=== PATIENT | female | born 2000 | race African-American/Black ===

== ENCOUNTER 2020-09-24 13:45 | Emergency (ER) | payer BC ==
[~2020-09-24] VITALS: Ht 149.9 cm; Wt 63.5 kg
--- NOTE | 2020-09-24 13:55 | NUR ---
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 Respiration regular and unlabored. In room air and denies SOB. Denies pain. The patient denies SI/HI. Attached to the monitor. Warm blanket provided for comfort. Will continue to monitor the patient.
--- NOTE | 2020-09-24 13:58 | NUR ---
CALLED [employer]. JULIAN PATTON. REPORT NUMBER IS [id number]
--- NOTE | 2020-09-24 14:10 | NUR ---
AARON STATED "75 MG WILL HAVE MILD EFFECTS. HAVE A TOXICOLOGY REPORT FOR ALCOHOL AND OTHER SUBSTANCES. MONITOR FOR 4-6 HOURS AFTER INGESTION. MAKE SURE BREATHING ISNT COMPROMISED AND IS AROUSABLE. PT MAY FEEL SLEEPY, WEAK AND HAVE AN UNSTEADY GAIT. "
[2020-09-24 14:20] LABS: BASOPHILS # (AUTO) 0.1 /CMM (0.0-0.2); BASOPHILS % (AUTO) 0.8 % (0.0-2.0); EOSINOPHILS % (AUTO) 3.3 % (0.0-6.0); HEMATOCRIT 38 % (33-45); HEMOGLOBIN 12.4 g/dL (11.5-14.8); LYMPHOCYTES # (AUTO) 2.4 /CMM (0.8-4.8); LYMPHOCYTES % (AUTO) 26.1 % (20.0-44.0); MEAN CORPUSCULAR HGB CONC 33 g/dl (31.0-36.0); MEAN CORPUSCULAR VOLUME 82 fL (82-100); MONOCYTES # (AUTO) 0.6 /CMM (0.1-1.30); MONOCYTES % (AUTO) 6.8 % (2.0-12.0); NEUTROPHILS # (AUTO) 5.8 /CMM (1.8-8.9); PLATELET COUNT (AUTO) 378 /CMM (150-450); RED BLOOD CELL COUNT(AUTO) 4.64 MIL/uL (4.0-5.2); WHITE BLOOD COUNT (AUTO) 9.2 K/uL (4.3-11.0)
[2020-09-24 14:34] LABS: ALANINE AMINOTRANSFERASE 17 U/L (12-78); ALBUMIN 3.9 g/dL (3.4-5.0); ALKALINE PHOSPHATASE 77 U/L (46-116); ASPARTATE AMINOTRANSFERASE 15 U/L (15-37); BILIRUBIN,DIRECT 0.1 mg/dL (0.0-0.2); BILIRUBIN,TOTAL 0.3 mg/dL (0.2-1.0); CARBON DIOXIDE 26 mmol/L (21-32); CHLORIDE 103 mmol/L (98-107); CREATININE 0.6 mg/dL (0.6-1.3); GLUCOSE 82 mg/dL (74-106); POTASSIUM 3.8 mmol/L (3.5-5.1); SODIUM SERUM 138 mmol/L (136-145); TOTAL PROTEIN, SERUM 7.7 g/dL (6.4-8.2); UREA NITROGEN, BLOOD 10 mg/dL (7-18)
[2020-09-24 14:35] LABS: ACETAMINOPHEN < 2 ug/ml (10-30); ALCOHOL, BLOOD < 3 mg/dL (0-0); CALCIUM, SERUM 9.5 mg/dL (8.5-10.1)
--- NOTE | 2020-09-24 17:15 | NUR ---
THE PATIENT SLEEPING. RESPONSIVE TO TACTILE STIMULI. RESPIRATION REGULAR AND UNLABORED. WILL CONTINUE TO MONITOR.
--- NOTE | 2020-09-24 20:51 | NUR ---
PT UNABLE TO PROVIDE URINE SAMPLE AT THIS TIME. MD VELEZ
--- NOTE | 2020-09-24 20:57 | NUR ---
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
[2020-09-24 21:22] LABS: BILIRUBIN,URINE Negative (NEGATIVE); COLOR,URINE YELLOW (YELLOW); LEUKOCYTE ESTERASE ,URINE Moderate (NEGATIVE); NITRITE, URINE Negative (NEGATIVE); PH,URINE 6.5 (5.0-8.0); PROTEIN,URINE Negative (NEGATIVE); UGLUCOSE Negative (NEGATIVE); UROBILINOGEN,URINE 0.2 EU/dL (0.2)
[2020-09-24 21:44] LABS: BACTERIA,URINE Few /HPF (None Seen); RBC,URINE 0-2 /HPF (0-2); SQUAMOUS EPITHELIAL CELL,UR 0-2 /HPF (None Seen); WBC,URINE 21-50 /HPF (0-3)
--- NOTE | 2020-09-24 22:07 | NUR ---
[employer] SALES REPRESENTATIVE AT BEDSIDE FOR EVAL. PT CLEARED.
[2020-09-24 22:08] VITALS: BP 128/76
--- NOTE | 2020-09-24 22:08 | NUR ---
Patient discharged to home in stable condition. Written and verbal after care instructions given. Patient verbalizes understanding of instruction. Pt ambulated out of ED. VSS.
== END 2020-09-24 22:10 | disposition home or self-care (01) ==
LOC: ER 13:57
DX: T42.6X1A Poisoning by other antiepileptic and sedative-hypnotic drugs, accidental (unintentional), initial encounter (principal); F90.9 Attention-deficit hyperactivity disorder, unspecified type; R94.31 Abnormal electrocardiogram [ECG] [EKG]; G47.00 Insomnia, unspecified; Y92.89 Other specified places as the place of occurrence of the external cause
CPT/HCPCS: 36415; 80048-TC; 80076-TC; 81001; 84484-TC; 84702-TC; 85025-TC; 87086-TC; G0480